=== PATIENT | female | born 1980 | race Caucasian/White ===

== ENCOUNTER 2018-03-01 18:59 | Emergency (ER) | payer OTHER, MEDICAID ==
[~2018-03-01] VITALS: Ht 170.2 cm; Wt 64.6 kg
[~2018-03-01 18:59] MED LIST: ADDERALL 30 MG30 MG PO; ALPRAZOLAM PO; AMITRIPTYLINE H25 M2 PO; AMOXICILLIN500 M1 PO; AZITHROMYCIN 2250 MG PO; CEPHALEXIN 500500 M3 PO; CLONAZEPAM 1 MG1 M1 PO; EFFEXOR 5050 MG/1 T1 PO; EFFEXOR XR37.5 MG PO; IBUPROFEN 800800 M1 PO; IBUPROFEN 800800 MG PO; KEFLEX250 MG PO; KLONOPIN2 MG PO; MACROBID 100 M100 M1 PO; MOBIC7.5 M1 PO; NORCO 5-325 TA1 EACH PO; ONDANSETRON HCL4 M2 PO; OXYCODON-ACETA1 EAC1 PO; OXYCONTIN20 M1 PO; PERCOCET 5-3251 EACH PO; PERCOCET 7.5-31 EACH PO; PREDNISONE 20 M20 M1 PO; PREDNISONE 20 M20 MG PO; PREDNISONE50 MG PO; PROMETHAZINE-D120 ML PO; REMERON30 MG; ROBAXIN 750 MG750 MG PO; SEROQUEL 25 MG25 M1 PO; SUBOXONE 8 MG-1 EAC3 SL; VENTOLIN HFA INH8 GM IH; XANAX 0.5 MG0.5 MG PO; XANAX 1 MG TABLE1 MG PO; [UNRECOGNIZED DRUG - OTHER] PO
[2018-03-01 19:55] VITALS: BP 148/62
== END 2018-03-01 19:59 | disposition home or self-care (01) ==
LOC: M.ERS 18:59
DX: F41.9 Anxiety disorder, unspecified (principal); F15.90 Other stimulant use, unspecified, uncomplicated; F90.9 Attention-deficit hyperactivity disorder, unspecified type; F31.9 Bipolar disorder, unspecified; F17.210 Nicotine dependence, cigarettes, uncomplicated

== ENCOUNTER 2018-07-12 12:20 | Emergency (ER) | payer OTHER ==
[~2018-07-12] VITALS: Ht 170.2 cm; Wt 56.7 kg
[2018-07-12] MEDS ORDERED: REMERON15 MG PO (12:36)
[2018-07-12] MEDS ORDERED: MINIPRESS1 MG PO (12:36)
[2018-07-12] MEDS ORDERED: SUBOXONE 12 MG1 EACH SL (12:38)
[2018-07-12 13:06] VITALS: BP 131/88
== END 2018-07-12 13:07 | disposition home or self-care (01) ==
LOC: M.ERS 12:20
DX: S01.81XA Laceration without foreign body of other part of head, initial encounter (principal); F17.210 Nicotine dependence, cigarettes, uncomplicated; M19.90 Unspecified osteoarthritis, unspecified site; F90.9 Attention-deficit hyperactivity disorder, unspecified type; F41.9 Anxiety disorder, unspecified; F31.9 Bipolar disorder, unspecified; Z90.49 Acquired absence of other specified parts of digestive tract; W18.39XA Other fall on same level, initial encounter; Y92.89 Other specified places as the place of occurrence of the external cause; Y93.89 Activity, other specified; Y99.8 Other external cause status

== ENCOUNTER 2018-08-02 10:17 | Emergency (ER) | payer OTHER ==
[~2018-08-02] VITALS: Ht 170.2 cm; Wt 59.0 kg
[~2018-08-02 10:17] MED LIST changes: +MINIPRESS1 MG PO; +REMERON15 MG PO; +SUBOXONE 12 MG1 EACH SL
[2018-08-02] MEDS ORDERED: TEGRETOL200 MG PO (10:28)
[2018-08-02] MEDS ORDERED: RISPERDAL2 MG PO (10:30)
[2018-08-02 10:58] LABS: ABSOLUTE LYMPHOCYTES 1.3 thou/uL (0.8-5.3); ABSOLUTE MONOCYTES 0.3 thou/uL (0.0-1.2); ABSOLUTE NEUTROPHILS 2.5 thou/uL (1.6-8.1); BASOPHILS 0.6 %; EOSINOPHILS 1.2 %; HEMATOCRIT 35.6 % (37.0-47.0); HEMOGLOBIN 11.9 gm/dL (12.0-15.0); LYMPHOCYTES 30.5 %; MCH 28.7 pg (26.0-34.0); MCHC 33.5 g/dL (28.0-37.0); MCV 85.5 fL (80.0-100.0); MONOCYTES 7.2 %; MPV 8.1 fl. (7.2-11.1); NUCLEATED RBCS 0 /100WBC; PLATELET COUNT* 166 thou/uL (150-400); POLYS 60.5 %; RBC 4.16 mil/uL (4.20-5.00); RDW-CV 14.7 % (10.5-14.5); WBC 4.2 thou/uL (4.0-11.0)
[2018-08-02 10:58] LABS: AMP/METHAMP Negative (Negative); BARBITURATES Negative (Negative); BENZODIAZEPINES POSITIVE (Negative); COCAINE Negative (Negative); METHADONE Negative (Negative); OPIATES Negative (Negative); PCP Negative (Negative); THC POSITIVE (Negative)
[2018-08-02 11:11] LABS: CALCIUM 8.7 mg/dL (8.5-10.1); CREATININE 0.7 mg/dL (0.6-1.3); POTASSIUM 3.7 mmol/L (3.5-5.1)
[2018-08-02 11:15] LABS: ALBUMIN 3.7 g/dL (3.4-5.0); SALICYLATE < 2.8 mg/dL (2.8-20.0); TOTAL BILIRUBIN 0.3 mg/dL (<0.1-1.0)
[2018-08-02 11:16] LABS: ACETAMINOPHEN < 2 ug/mL (10-30); ALCOHOL < 10 mg/dL (<10)
[2018-08-02] MEDS ORDERED: PREDNISONE 20 M20 M1 PO (11:31)
[2018-08-02] MEDS ORDERED: ATIVAN1 MG PO (15:43)
[2018-08-02 17:13] VITALS: BP 115/61
== END 2018-08-02 17:13 | disposition home or self-care (01) ==
LOC: M.ERS 10:17
PROVIDERS: Family Medicine
DX: F12.10 Cannabis abuse, uncomplicated (principal); F90.9 Attention-deficit hyperactivity disorder, unspecified type; F41.9 Anxiety disorder, unspecified; F31.9 Bipolar disorder, unspecified; F17.210 Nicotine dependence, cigarettes, uncomplicated; Z86.14 Personal history of Methicillin resistant Staphylococcus aureus infection; Z79.899 Other long term (current) drug therapy

== ENCOUNTER 2018-08-04 17:59 | Inpatient (IN) | payer OTHER ==
[~2018-08-04] VITALS: Ht 167.6 cm; Wt 64.9 kg
--- NOTE | ~2018-08-04 | CON ---
[address] [address] CONSULTATION Name: RODRIGO ARIAS Room: [address] ADM IN M.R.#: [id number] Admission: 08/04/18 Attend Phys: Leland Pepe MD Discharge: Date of : 78 Report #: [id number] THIS REPORT FOR: //name// CC: LIZZY physician/PCP Leland Pepe DATE OF SERVICE: 08/05/2018 HISTORY OF PRESENT ILLNESS: This is a 37-year-old female patient whose consultation was requested for seizures. This patient overdosed on doxepin. She is being managed by hospitalist for that, but neurology consultation was requested because the patient started having seizure. Apparently, she also had seizure in the Emergency Room, and they could not do the CT scan at that time. She was given Versed, and she was put on propofol, but seizure continued. I have not been able to reach the , but the nurses just talked to him, and apparently, she has some history of seizures. She takes Tegretol, but apparently that is because of seizures. I will continue to try to reach her. REVIEW OF SYSTEMS: Indicates drug overdose. She has a history of anxiety, a methamphetamine use. She had a prior . I do not know any further history in this regard, and we will try to contact the patient's . 14-point review of systems was carried out, and it looks like the patient has MRSA, bipolar disorder, posttraumatic stress disorder, anxiety, ADHD, gallbladder removal, HPV, degenerative disk disease, kidney infection that required hospitalization. This was the relevant 14-point review of system I can get. PAST MEDICAL HISTORY: Positive for multiple psychiatric problems. FAMILY HISTORY: Unavailable. SOCIAL HISTORY: She smokes as well as drinks alcohol, but it is not clear how much. The patient's alcohol level here was less than 10. PHYSICAL EXAMINATION: Indicates that the patient is sedated and pupils are small and difficult to tell about reaction. I cannot tell about movement because she is all sedated. She is intubated. Her vital signs are reasonably stable with a blood pressure 120/81 and pulse is 84. LABORATORY DATA: Indicates a normal white count and I got the Tegretol level done and that was also unremarkable. She did not overdose on that. They could not do a CT because she is considered too unstable to go for CT. IMPRESSION: 1. Drug overdose. 2. Seizures secondary to that. That was controlled [place] [address] CONSULTATION Name: RODRIGO ARIAS Room: [address]#: [id number] Admission: 08/04/18 Attend Phys: Leland Pepe MD Discharge: Date of : 78 Report #: [id number] propofol. She has not had any further seizures. RECOMMENDATIONS: We will continue to reach the patient's . Until she has a well-defined history of epilepsy, I will control the seizure with a benzodiazepine. We did get an EEG done last night that did not show any active epileptiform activity. The patient is critically ill at the moment, and we will continue to watch this patient closely. By: 0815 [id number] Cerrato MD /nt
--- NOTE | ~2018-08-04 | EEG ---
[address] [address] EEG STUDY REPORT Name: RASHIDAERIBERTOYahairaRODRIGO AKUA Room: [address] IN .R.#: [id number] Admission: 08/04/18 Attend Phys: Leland Pepe MD Discharge: Date of : 78 Report #: [id number] THIS REPORT FOR: //name// CC: [facility] physician/PCP Leland Pepe DATE OF SERVICE: 08/06/2018 This patient's EEG is being evaluated for history of seizures. The background activity in this patient's EEG is about 8-9 Hz and 30-40 microvolt. Photic stimulation is unremarkable. The patient is sedated and therefore is not possible to tell when she is awake and when she is asleep. No active epileptiform activity was noticed. IMPRESSION: This patient's EEG is abnormal because it is poorly formed. That may be because of sedation or encephalopathy. No active epileptiform activity was noticed. Clinical correlation is recommended. By: 0827 1013Pvenancio Cerrato MD /nt
--- NOTE | ~2018-08-04 | EEG ---
[address] [address] EEG STUDY REPORT Name: RASHIDAERIBERTOYahairaRODRIGO AKUA Room: [address] IN M.R.#: [id number] Admission: 08/04/18 Attend Phys: Leland Pepe MD Discharge: Date of : 79 Report #: [id number] THIS REPORT FOR: //name// CC: [facility] physician/PCP Leland Pepe DATE OF SERVICE: 08/04/2018 This patient is having seizures after tricyclic overdose. TECHNIQUE: EEG was done by placing the electrode by standard 10-20 system of electrode placement. Both referential and sequential montages were used for recording. Background activity in this patient's EEG is about 8-9 Hz and 30 microvolt. The patient is sedated on propofol. Photic stimulation is unremarkable. No active epileptiform activity was noticed during this record. IMPRESSION: This patient's EEG does not demonstrate any clear-cut epileptiform activity. It is slow on both sides. That is a nonspecific abnormality which can occur with effect of psychotropic medications, dementia and encephalopathy. Clinical correlation is recommended. By: 0918 1005Jason Cerrato MD /nt
[2018-08-04 17:59] VITALS: BP 105/75
[~2018-08-04 17:59] MED LIST changes: +ATIVAN1 MG PO; +RISPERDAL2 MG PO; +TEGRETOL200 MG PO
[2018-08-04 18:26] LABS: ABSOLUTE BASOPHILS 0.1 thou/uL (0.0-0.2); ABSOLUTE EOSINOPHILS 0.2 thou/uL (0.0-0.7); ABSOLUTE LYMPHOCYTES 1.8 thou/uL (0.8-5.3); ABSOLUTE MONOCYTES 0.3 thou/uL (0.0-1.2); ABSOLUTE NEUTROPHILS 4.6 thou/uL (1.6-8.1); EOSINOPHILS 2.8 %; HEMATOCRIT 39.2 % (37.0-47.0); LYMPHOCYTES 26.3 %; MCH 28.3 pg (26.0-34.0); MCHC 33.1 g/dL (28.0-37.0); MCV 85.6 fL (80.0-100.0); MONOCYTES 4.4 %; MPV 8.7 fl. (7.2-11.1); NUCLEATED RBCS 0 /100WBC; PLATELET COUNT* 198 thou/uL (150-400); POLYS 65.5 %; RBC 4.58 mil/uL (4.20-5.00); RDW-CV 14.6 % (10.5-14.5)
[2018-08-04 18:27] LABS: BE -0.9 mmol/L (-2 to +3); HCO3 22.2 mmol/L (22.0-26.0); PCO2 32.2 mmHg (35.0-45.0); pH 7.457 (7.340-7.450)
[2018-08-04 18:30] LABS: PO2 > 488.8 mmHg (75.0-100.0)
[2018-08-04 18:36] LABS: ANION GAP 7 mmol/L (7-16); BUN 16 mg/dL (7-18); CALCIUM 9.6 mg/dL (8.5-10.1); CHLORIDE 101 mmol/L (98-107); CO2 30 mmol/L (21-32); CREATININE 0.8 mg/dL (0.6-1.3); GLUCOSE 97 mg/dL (70-99); POTASSIUM 3.6 mmol/L (3.5-5.1); SODIUM 138 mmol/L (136-145)
[2018-08-04 18:38] LABS: APTT 24.5 Seconds (25.0-31.3); PROTIME 10.3 Seconds (9.20-11.50)
[2018-08-04 18:43] LABS: SALICYLATE < 2.8 mg/dL (2.8-20.0)
[2018-08-04 18:44] LABS: ACETAMINOPHEN < 2 ug/mL (10-30); ALCOHOL < 10 mg/dL (<10)
[2018-08-04 18:45] LABS: AMP/METHAMP Negative (Negative); BARBITURATES Negative (Negative); BENZODIAZEPINES Negative (Negative); COCAINE Negative (Negative); METHADONE Negative (Negative); OPIATES Negative (Negative); PCP Negative (Negative); THC Negative (Negative)
[2018-08-04 18:49] LABS: ALBUMIN 3.8 g/dL (3.4-5.0); ALKALINE PHOSPHATASE 54 U/L (46-116); NT-PRO BRAIN NAT PEPTIDE 36 pg/mL (<300); SGOT 52 U/L (15-37); SGPT 29 U/L (30-65); TOTAL BILIRUBIN 0.2 mg/dL (<0.1-1.0); TOTAL PROTEIN 7.4 g/dL (6.4-8.2); TROPONIN-I LEVEL <0.06 ng/mL (<0.06)
[2018-08-04 20:17] VITALS: BP 133/92
[2018-08-04 22:00] VITALS: BP 136/92
[2018-08-05] VITALS (19 sets, daily range): BP systolic 104–139; BP diastolic 65–99
[2018-08-05 06:14] LABS: BE 2.7 mmol/L (-2 to +3); HCO3 26.2 mmol/L (22.0-26.0); PCO2 36.8 mmHg (35.0-45.0); pH 7.471 (7.340-7.450)
[2018-08-05 06:17] LABS: PO2 146.5 mmHg (75.0-100.0)
--- NOTE | 2018-08-05 11:05 | CON ---
[address] [address] CONSULTATION Name: AMARIYahairaRODRIGO AKUA Room: [address] ADM IN M.R.#: [id number] Admission: 08/04/18 Attend Phys: Leland Pepe MD Discharge: Date of : 79 Report #: [id number] THIS REPORT FOR: //name// CC: [facility] physician/PCP Leland Pepe DATE OF SERVICE: 08/05/2018 REQUESTING PHYSICIAN: Dr. Pepe. REASON FOR CONSULTATION: Respiratory failure, status post drug overdose, on ventilator with seizures. DISCUSSION: This is a 37-year-old woman who was brought into the Emergency Department yesterday via EMS. They had been called as she apparently had ingested a large amount of doxepin. According to the ED notes, took about 45 tablets of this, they were 100 mg dosage. Was initially incoherent. While she was in the Emergency Department, mental status began to deteriorate. Was not overly cooperative. She subsequently was intubated. Central line was also placed. Poison Control was contacted by the Emergency Department. She has been getting periodic EKGs. Bicarb drip was also started. Had issues with seizures, apparently already has an underlying history of those. Dr. Cerrato was contacted. She is on a propofol and a Versed drip. She has not required any additional p.r.n. medications. She has not had any further seizure activity. She has been hemodynamically stable otherwise. Initially was mildly tachycardic. That has improved, she is now in the 80s. She has had a good blood pressure. She has been oxygenating well. She is sedated as noted above. Apparently, she does have a history of substance abuse. She has had a prior tonsillectomy. She has had multiple ED visits, in fact was here several days prior to this event. Apparently, was confused. Had thought she was being drugged with cocaine. Drug screen, however, subsequently was negative. Does have a past history of methamphetamine use, does use marijuana. She has had issues with headaches, posttraumatic stress syndrome, prior cholecystectomy, prior kidney infections. When she was in the Emergency Department several days ago, her home medications listed at that time were Minipress, Suboxone and Tegretol. They did give her a script for Xanax. SOCIAL HISTORY: Reportedly is . Has children. Tobacco user, not clear how much. FAMILY HISTORY: Unable to obtain from the patient. REVIEW OF SYSTEMS: Unable to [place] [address] CONSULTATION Name: RODRIGO ARIAS Room: [address] IN [facility]#: [id number] Admission: 08/04/18 Attend Phys: Leland Pepe MD Discharge: Date of : 79 Report #: [id number] PHYSICAL EXAMINATION: GENERAL APPEARANCE: A woman, does look older than stated age. Does look chronically ill, she is thin. Currently sedated on the ventilator, also has an orogastric tube in place. HEENT: Head is normocephalic. Sclerae nonicteric. Mucous membranes are a little dry. NECK: Negative for adenopathy. Does have an IJ line in place. HEART: Regular in the mid 80s. No gallop or S3 is heard. LUNGS: Sounds are clear with good air exchange. No wheezing or crackles are heard. Excursion is equal. No subcutaneous emphysema. ABDOMEN: Soft, without appreciable hepatosplenomegaly noted. Valenzuela catheter in place. EXTREMITIES: Thin. She has no edema. No clubbing. SKIN: Warm and dry. She does have multiple areas noted on her arms, legs as well as her abdomen. They are from "bites" or from "picking." LABORATORY AND X-RAY FINDINGS: Most recent arterial blood gas, which was on 6:00 this morning, she had a pH of 7.47, pCO2 of 37, pO2 of 147, bicarbonate 26 with a saturation of 98%. She is on the ventilator, rate of 14, tidal volume of 550, PEEP of 5, FiO2 of 35%. On her chemistry done yesterday evening, potassium is 3.6, bicarbonate of 30, BUN is 16, creatinine of 0.8. AST 52, total bilirubin 0.2, total CPK 1243, lactic acid 1.4, albumin 3.8. Coag studies unremarkable. Drug screen was positive for benzodiazepines and THC. White blood cell count 7000, hemoglobin 13.0, hematocrit 39.2, platelets 198,000. Blood cultures were sent. Chest x-ray was reviewed. Had study yesterday as well as another one done this morning. Endotracheal tube is in position. Enteral tube is in her stomach. No infiltrates are noted. IMPRESSION: 1. Acute respiratory failure, intubated due to alterations in mental status and seizures. Oxygenating well. 2. Status post drug overdose with doxepin. 3. History of tobacco and substance abuse, exact details not clear. 4. Seizures, reportedly has a history of seizures baseline. Overdose will certainly exacerbate that. RECOMMENDATIONS: 1. Given the large volume of medications that she ingested, we will maintain ventilatory support and sedation today. 2. Follow up blood gases later today. Continue with bicarbonate drip at this time. Vent adjustments as needed. 3. Continue DuoNeb every 4 hours. 4. If she is stable tomorrow, may be able to work on weaning from the ventilator. 5. Follow up [place]KGs[place] [address] CONSULTATION Name: RODRIGO ARIAS Room: [address] ADM IN M.R.#: [id number] Admission: 08/04/18 Attend Phys: Leland Pepe MD Discharge: Date of : 78 Report #: [id number] 6. Neurology will also be involved given her seizures. 7. Psychiatric input once she is able to be successfully extubated. <ELECTRONICALLY SIGNED> By: Shelley Samano MD 08/05/18 1105 0812 1102Shelley Samano MD /nt
[2018-08-05] MEDS ORDERED: RISPERDAL2 MG PO (12:06)
[2018-08-05] MEDS ORDERED: PRAZOSIN 1 MG CA1 M1 PO (12:07)
[2018-08-05] MEDS ORDERED: REMERON15 MG PO (12:08)
[2018-08-05] MEDS ORDERED: WELLBUTRIN XL300 MG PO (12:09)
[2018-08-05] MEDS ORDERED: DOXEPIN HCL150 MG PO (12:17)
--- NOTE | 2018-08-05 12:17 | EKG ---
[place] [address] ELECTROCARDIOGRAM REPORT Name: RODRIGO ARIAS Room: [address] ADM IN M.R.#: [id number] Admission: 08/04/18 Attend Phys: Leland Pepe MD Discharge: Date of : 79 Report #: [id number] THIS REPORT FOR: //name// [facility] Test Date: 2018-08-05 Test Time: 00:19:45 Pat Name: RODRIGO RASHIDAERIBERTOYahaira Department: Room: [address] Gender: F Edge Bonder: MILLER REYNA : 1980 Requested By: Leland Pepe Order Number: [id number] Reading MD: Alexis Edwards Measurements Intervals [place] Rate: 89 P: -47 OR: 235 QRS: 28 QRSD: 123 T: 76 QT: 416 QTc: 507 Interpretive Statements Sinus or ectopic atrial rhythm Prolonged OR interval Left bundle branch block Compared to ECG 12/20/2014 17:23:41 Ectopic atrial rhythm now present First degree AV block now present Left bundle-branch block now present Sinus tachycardia no longer present Electronically Signed On 08-05-2018 12:17:29 TOOL GRINDER OPERATOR by Alexis Edwards [email or web address] <ELECTRONICALLY SIGNED> By: Alexis Edwards MD, FACC 08/05/18 1217 0019 0019 Alexis Edwards MD, FACC /EPI
--- NOTE | 2018-08-05 12:17 | EKG ---
[place] [address] ELECTROCARDIOGRAM REPORT Name: RODRIGO ARIAS Room: [address] ADM IN M.R.#: [id number] Admission: 08/04/18 Attend Phys: Leland Pepe MD Discharge: Date of : 78 Report #: [id number] THIS REPORT FOR: //name// [facility] ED Test Date: 2018-08-04 Test Time: 19:00:44 Pat Name: RODRIGO ARIAS Department: Room: [facility] Gender: F Music Video Producer: Albertina DIMAS : 1980 Requested By: Oli Dominguez Order Number: [id number] MD: Alexis Edwards Measurements Intervals [place] Rate: 101 P: 92 AL: 267 QRS: 64 QRSD: 137 T: 69 QT: 336 QTc: 436 Interpretive Statements Sinus tachycardia Prolonged AL interval Probable left atrial enlargement IVCD, consider atypical LBBB Compared to ECG 12/20/2014 17:23:41 First degree AV block now present Electronically Signed On 08-05-2018 12:16:54 MOSAIC TILER by Alexis Edwards [email or web address] <ELECTRONICALLY SIGNED> By: Alexis Edwards MD, FACC 08/05/18 1216 190 99 Alexis Edwards MD, FAC /EPI
--- NOTE | 2018-08-05 12:17 | EKG ---
[place] [address] ELECTROCARDIOGRAM REPORT Name: RODRIGO ARIAS Room: [address] ADM IN M.R.#: [id number] Admission: 08/04/18 Attend Phys: Leland Pepe MD Discharge: Date of : 78 Report #: [id number] THIS REPORT FOR: //name// [facility] Test Date: 2018-08-05 Test Time: 00:09:54 Pat Name: RODRIGO RASHIDAERIBERTOYahaira Department: Room: [address] Gender: F Political Science Professor: MILLER REYNA : 1980 Requested By: Leland Pepe Order Number: [id number] Reading MD: Alexis Edwards Measurements Intervals [place] Rate: 89 P: -39 SC: 234 QRS: 35 QRSD: 120 T: 68 QT: 411 QTc: 501 Interpretive Statements Sinus rhythm Prolonged SC interval Anterior infarct, acute (LAD) Compared to ECG 12/20/2014 17:23:41 First degree AV block now present Myocardial infarct finding now present Sinus tachycardia no longer present Electronically Signed On 08-05-2018 12:17:23 CERTIFIED NEURODIAGNOSTIC TECHNOLOGIST by Alexis Edwards [email or web address] <ELECTRONICALLY SIGNED> By: Alexis Edwards MD, FAC 08/05/18 1217 0009 0009 Alexis Edwards MD, FAC /EPI
[2018-08-05 15:40] LABS: BE 0.3 mmol/L (-2 to +3); HCO3 24.1 mmol/L (22.0-26.0); pH 7.444 (7.340-7.450)
[2018-08-05 15:50] LABS: PO2 151.3 mmHg (75.0-100.0)
[2018-08-06] VITALS (19 sets, daily range): BP systolic 100–135; BP diastolic 68–99
[2018-08-06 04:25] LABS: BE -0.4 mmol/L (-2 to +3); PCO2 29.2 mmHg (35.0-45.0); pH 7.495 (7.340-7.450)
[2018-08-06 04:27] LABS: PO2 158.9 mmHg (75.0-100.0)
[2018-08-06 04:54] LABS: HEMATOCRIT 26.9 % (37.0-47.0); MCH 30.8 pg (26.0-34.0); MCHC 32.9 g/dL (28.0-37.0); NUCLEATED RBCS 0 /100WBC; PLATELET COUNT* 169 thou/uL (150-400); RBC 2.87 mil/uL (4.20-5.00); RDW-CV 16.4 % (10.5-14.5); WBC 9.9 thou/uL (4.0-11.0)
[2018-08-06 05:07] LABS: HEMOGLOBIN 8.8 gm/dL (12.0-15.0); MCV 93.5 fL (80.0-100.0)
[2018-08-06 06:39] LABS: ABSOLUTE EOSINOPHILS 0.1 thou/uL (0.0-0.7); ABSOLUTE LYMPHOCYTES 2.4 thou/uL (0.8-5.3); ABSOLUTE MONOCYTES 0.7 thou/uL (0.0-1.2); ABSOLUTE NEUTROPHILS 6.7 thou/uL (1.6-8.1); ANISOCYTOSIS 1+; PLATELET ESTIMATE ADEQUATE; POIKILOCYTOSIS 1+
[2018-08-07] VITALS (24 sets, daily range): BP systolic 108–136; BP diastolic 66–91
[2018-08-07 04:31] LABS: ABSOLUTE EOSINOPHILS 0.2 thou/uL (0.0-0.7); ABSOLUTE LYMPHOCYTES 1.2 thou/uL (0.8-5.3); ABSOLUTE MONOCYTES 0.4 thou/uL (0.0-1.2); ABSOLUTE NEUTROPHILS 4.5 thou/uL (1.6-8.1); BASOPHILS 0.6 %; EOSINOPHILS 3.2 %; HEMATOCRIT 31.5 % (37.0-47.0); HEMOGLOBIN 10.5 gm/dL (12.0-15.0); LYMPHOCYTES 19.3 %; MCHC 33.3 g/dL (28.0-37.0); MPV 8.7 fl. (7.2-11.1); NUCLEATED RBCS 0 /100WBC; PLATELET COUNT* 133 thou/uL (150-400); POLYS 70.9 %; RBC 3.61 mil/uL (4.20-5.00); RDW-CV 15.2 % (10.5-14.5); WBC 6.3 thou/uL (4.0-11.0)
[2018-08-07 05:03] LABS: ALBUMIN 2.5 g/dL (3.4-5.0); CALCIUM 8.1 mg/dL (8.5-10.1); CREATININE 0.6 mg/dL (0.6-1.3); POTASSIUM 3.8 mmol/L (3.5-5.1); TOTAL BILIRUBIN 0.1 mg/dL (<0.1-1.0); TOTAL PROTEIN 5.4 g/dL (6.4-8.2)
[2018-08-07 09:04] LABS: BE -0.6 mmol/L (-2 to +3); HCO3 23.4 mmol/L (22.0-26.0); PCO2 36.4 mmHg (35.0-45.0); pH 7.426 (7.340-7.450)
[2018-08-07 09:05] LABS: PO2 145.2 mmHg (75.0-100.0)
[2018-08-08] VITALS (18 sets, daily range): BP systolic 105–139; BP diastolic 68–103
[2018-08-08 04:36] LABS: ABSOLUTE EOSINOPHILS 0.1 thou/uL (0.0-0.7); ABSOLUTE LYMPHOCYTES 1.3 thou/uL (0.8-5.3); ABSOLUTE MONOCYTES 0.4 thou/uL (0.0-1.2); BASOPHILS 0.2 %; EOSINOPHILS 1.5 %; HEMATOCRIT 28.9 % (37.0-47.0); HEMOGLOBIN 9.6 gm/dL (12.0-15.0); LYMPHOCYTES 22.7 %; MCHC 33.3 g/dL (28.0-37.0); MCV 87.3 fL (80.0-100.0); MONOCYTES 7.6 %; MPV 9.1 fl. (7.2-11.1); NUCLEATED RBCS 0 /100WBC; PLATELET COUNT* 112 thou/uL (150-400); RBC 3.31 mil/uL (4.20-5.00); RDW-CV 14.5 % (10.5-14.5); WBC 5.9 thou/uL (4.0-11.0)
[2018-08-08 04:49] LABS: PREALBUMIN 18.3 mg/dL (18.0-35.7)
[2018-08-08 04:50] LABS: ALBUMIN 2.6 g/dL (3.4-5.0); CALCIUM 7.7 mg/dL (8.5-10.1); CREATININE 0.6 mg/dL (0.6-1.3); POTASSIUM 3.2 mmol/L (3.5-5.1); TOTAL BILIRUBIN 0.3 mg/dL (<0.1-1.0); TOTAL PROTEIN 5.5 g/dL (6.4-8.2)
[2018-08-09] VITALS (23 sets, daily range): BP systolic 105–139; BP diastolic 65–93
[2018-08-10] VITALS (8 sets, daily range): BP systolic 97–124; BP diastolic 66–88
[2018-08-10 04:42] LABS: HEMOGLOBIN 9.9 gm/dL (12.0-15.0); MCV 86.2 fL (80.0-100.0)
[2018-08-10 04:44] LABS: ABSOLUTE EOSINOPHILS 0.3 thou/uL (0.0-0.7); ABSOLUTE LYMPHOCYTES 1.2 thou/uL (0.8-5.3); ABSOLUTE MONOCYTES 0.3 thou/uL (0.0-1.2); ABSOLUTE NEUTROPHILS 2.9 thou/uL (1.6-8.1); BASOPHILS 0.4 %; HEMATOCRIT 29.9 % (37.0-47.0); LYMPHOCYTES 24.8 %; MCH 28.6 pg (26.0-34.0); MCHC 33.2 g/dL (28.0-37.0); MONOCYTES 6.6 %; MPV 8.6 fl. (7.2-11.1); NUCLEATED RBCS 0 /100WBC; PLATELET COUNT* 145 thou/uL (150-400); POLYS 62.2 %; RBC 3.47 mil/uL (4.20-5.00); RDW-CV 14.6 % (10.5-14.5); WBC 4.7 thou/uL (4.0-11.0)
[2018-08-10 04:55] LABS: ALBUMIN 2.5 g/dL (3.4-5.0); CALCIUM 8.3 mg/dL (8.5-10.1); CREATININE 0.6 mg/dL (0.6-1.3); POTASSIUM 3.6 mmol/L (3.5-5.1); TOTAL BILIRUBIN 0.1 mg/dL (<0.1-1.0); TOTAL PROTEIN 5.6 g/dL (6.4-8.2)
[2018-08-10] MEDS ORDERED: KEPPRA 500 MG500 M1 PO (18:03)
[2018-08-10] MEDS ORDERED: SEROQUEL 50 MG50 MG PO (18:04)
[2018-08-10] MEDS ORDERED: SEROQUEL 25 MG25 M1 PO (18:05)
== END 2018-08-10 19:55 | DRG 917 ==
LOC: M.ERS 17:59 → M.TBA-ER 18:39 → M.ICU 18:39 → M.ORTHSURG 08-10 10:38
PROVIDERS: Family Medicine; Internal Medicine; Internal Medicine Pulmonary Disease
PROC: 5A1945Z Respiratory Ventilation, 24-96 Consecutive Hours (ICD-10-PCS; principal; 2018-08-04)
PROC: 0BH17EZ Insertion of Endotracheal Airway into Trachea, Via Natural or Artificial Opening (ICD-10-PCS; principal; 2018-08-04)
PROC: 02HV33Z Insertion of Infusion Device into Superior Vena Cava, Percutaneous Approach (ICD-10-PCS; principal; 2018-08-04)
DX: T43.012A Poisoning by tricyclic antidepressants, intentional self-harm, initial encounter (principal); J96.01 Acute respiratory failure with hypoxia; G92 Toxic encephalopathy; G40.909 Epilepsy, unspecified, not intractable, without status epilepticus; F90.9 Attention-deficit hyperactivity disorder, unspecified type; F41.9 Anxiety disorder, unspecified; F43.10 Post-traumatic stress disorder, unspecified; F31.9 Bipolar disorder, unspecified; F17.210 Nicotine dependence, cigarettes, uncomplicated; F12.10 Cannabis abuse, uncomplicated; Z86.14 Personal history of Methicillin resistant Staphylococcus aureus infection; Y92.89 Other specified places as the place of occurrence of the external cause; Z78.1 Physical restraint status; Z91.14 Patient's other noncompliance with medication regimen; Z90.49 Acquired absence of other specified parts of digestive tract; Z79.899 Other long term (current) drug therapy

== ENCOUNTER 2020-01-20 19:16 | Emergency (ER) | payer MEDICAID ==
[~2020-01-20] VITALS: Ht 170.2 cm; Wt 58.1 kg
[~2020-01-20 19:16] MED LIST changes: +DOXEPIN HCL150 MG PO; +KEPPRA 500 MG500 M1 PO; +PRAZOSIN 1 MG CA1 M1 PO; +SEROQUEL 50 MG50 MG PO; +WELLBUTRIN XL300 MG PO
[2020-01-20] MEDS ORDERED: CYMBALTA20 MG PO (19:29)
[2020-01-20] MEDS ORDERED: CLONAZEPAM 0.50.5 M1 PO (19:29)
[2020-01-20] MEDS ORDERED: ANTI-ITCH28 G1 TOP (19:43)
[2020-01-20] MEDS ORDERED: PREDNISONE 10 M10 MG PO (19:43)
[2020-01-20 20:33] VITALS: BP 133/79
== END 2020-01-20 20:34 | disposition home or self-care (01) ==
LOC: M.ERS 19:16
DX: L25.9 Unspecified contact dermatitis, unspecified cause (principal); F17.210 Nicotine dependence, cigarettes, uncomplicated; Z86.14 Personal history of Methicillin resistant Staphylococcus aureus infection; Z87.898 Personal history of other specified conditions

== ENCOUNTER 2020-04-27 18:08 | Inpatient (IN) | payer MEDICAID ==
[~2020-04-27] VITALS: Ht 170.2 cm; Wt 58.1 kg
--- NOTE | ~2020-04-27 | CON ---
[address] [address] CONSULTATION Name: AMARIYahairaRODRIGO AKUA Room: [place] [address] ADM IN M.R.#: [id number] Admission: 04/27/20 Attend Phys: Adrian Guerrero MD Discharge: Date of : 79 Report #: [id number] THIS REPORT FOR: //name// cc: LIZZY Garces family physician/PCP LIZZY Garces family physician/PCP ~ THIS REPORT FOR: //name// CC: Adrian BALL physician/PCP DATE OF SERVICE: 04/28/2020 CONSULT REQUESTED BY: Adrian Guerrero MD. INDICATION FOR CONSULTATION: Acute hypercarbic respiratory failure. HISTORY OF PRESENT ILLNESS: This is a 39-year-old female. She has an extensive history of smoking, also does have a history of polysubstance abuse. The patient previously was admitted with drug overdosage and was in respiratory failure, also had seizures, was on the ventilator, that was back in 2018. The patient is not on supplemental oxygen at home. This time, the patient is admitted with a cardiac arrest, is reported to have briefly received CPR. The patient initially is reported to have taken a medication that she thought was Valium from another person. The patient is also reported to have had seizures initially. She did test positive for opiates, in addition to amphetamines, benzodiazepines and marijuana on initial presentation. I am told that the patient initially was hypotensive, in fact also was on pressors, has been fluid resuscitated, was on a BiPAP. Arterial blood gases do show elevation in pCO2 initially up to 60 with a pH of 7.25. The patient subsequently has stabilized. Currently, she is on 2 liters nasal cannula. She is drowsy, but fully arousable. She has various pain complaints including the right leg as well as shoulders and chest with respiration and coughing. The patient does state that she is short of breath. She also reports that she had hemoptysis earlier. She also states that she has a sore throat. Blood pressure has been variable, last recorded at 97/52; however, she does not appear to be in shock any longer. At this time, it appears to be well perfused. The patient currently is afebrile, had a low-grade elevation in temperature to 37.3 overnight. REVIEW OF SYSTEMS: The patient provided only limited review of systems. The patient's review of systems, however, is negative except as mentioned above, I did ask her 12 questions for review of systems. PAST MEDICAL HISTORY: Previous admission to this hospital in 2018 with acute respiratory failure and drug overdosage with doxepin. The patient also had seizures at that time. Degenerative joint disease, gallbladder surgery, ADHD, anxiety, posttraumatic stress disorder, bipolar disorder, MRSA skin infection, [place] [address] CONSULTATION Name: RODRIGO ARIAS Room: [address] [facility]#: [id number] Admission: 04/27/20 Attend Phys: Adrian Guerrero MD Discharge: Date of : 78 Report #: [id number] seizures, UTI requiring hospitalization, human papillomavirus infection requiring cone procedure. I do not have a measure of her left ventricular ejection fraction available at this time. SOCIAL HISTORY: The patient has an extensive history of smoking. She says that she still smokes. She did not quantify the amount of cigarettes she smokes. Also, has a history of polysubstance abuse as mentioned above. She says that she drinks about 2 beers a day. CURRENT MEDICATIONS: The list in [facility] reviewed. HOME MEDICATIONS: The list in [facility] is reviewed. I am not certain as to whether we have the entire list from home. ALLERGIES: VICODIN IS MENTIONED AN ALLERGY. FAMILY HISTORY: There is no pertinent family history. PHYSICAL EXAMINATION: GENERAL: The patient has poor eye contact. She provides a limited history. She closes her eyes during examination, however, she may still be fully awake. She is still able to answer questions adequately. VITAL SIGNS: She a pulse of 79 and a blood pressure of 79/52. She is saturating 98%, she is on 2 liters nasal cannula, respiratory rate is 20 and mildly elevated with a temperature of 36.6. HEENT: Head is normocephalic and atraumatic. NECK: Does not show raised JVP, asymmetry, mass or lymph nodes. CHEST: Symmetrical expansion on inspection and palpation. On auscultation, there are occasional rales at the left lung base. Expirations are prolonged. I do not hear any added sounds. HEART: Regular. There is no murmur. ABDOMEN: Soft and nontender. EXTREMITIES: Lower extremities show no edema. There is no calf tenderness. The patient complains of tenderness in the right calf. LABORATORY DATA: The patient's chest x-rays were reviewed. There are extensive infiltrates in the left lung. There is a central line in place. The patient's CBC as well as chemistries are in [facility] and these are reviewed from last night. Arterial blood gases in [facility] reviewed. I just ordered coagulation studies, these are pending. Toxicology screen is positive for multiple agents as above. The urinalysis is in [facility] and this is also reviewed. ASSESSMENT AND PLAN: 1. Acute hypercarbic respiratory failure. It is possible there is a chronic component as well. At this time, we will keep the patient on BiPAP while asleep. Titrate oxygen. [facility] [address] [place] [address] CONSULTATION Name: RODRIGO ARIAS Room: [place] [address] ADM IN .R.#: [id number] Admission: 04/27/20 Attend Phys: Adrian Guerrero MD Discharge: Date of : 79 Report #: [id number] 2. Pulmonary infiltrates. The patient has fairly extensive infiltrates in the left lung. The patient is on Zosyn. I agree with the same. I am inclined to broaden antibiotic coverage to include atypicals as well as methicillin-resistant Staphylococcus aureus. I am considering ordering doxycycline and therefore, I ordered a urine test, but the patient reports that she has had tubal ligation, which will make unlikely. Should the patient's condition worsen, I will have a low threshold of adding vancomycin. 3. Chronic obstructive pulmonary disease exacerbation. It does appear to me that there is underlying component of chronic obstructive pulmonary disease. Considering that the patient needs enhanced isolation for ruling out COVID-19, I only ordered Brovana b.i.d. as a nebulizer to limit exposure to staff. We will add additional nebulized medications if COVID-19 is negative. I ordered 3 doses of Solu-Medrol. We will reassess tomorrow with an arterial blood gas. 4. Drug overdosage. See discussion above. 5. Cardiac arrest. The patient did receive CPR and was unresponsive. As to whether she in fact had a cardiac arrest, is not fully clear. I do agree with obtaining an echocardiogram. Cardiology service is on the case. Troponin I only had mild elevation to 0.15. 6. Leg pain/hemoptysis. We need to evaluate for thromboembolism as well. I ordered venous Dopplers. I also ordered some labs now including D-dimer. We will review these and we will then evaluate for possibly ordering a CTA chest. 7. Hypotension. The patient's blood pressure still is on the lower side, however, she now appears to be well perfused. We will follow along and we will consider discontinuing IV fluids soon to avoid development of fluid overload if the patient's blood pressure remains in the normal range. 8. Past medical history of polysubstance abuse. 9. Past medical history of methicillin-resistant Staphylococcus aureus skin infections. 10. Past medical history of bipolar disorder. 11. Past medical history of seizures. Thanks for this consultation. By: 1245 [id number] Rivera MD /nt
[~2020-04-27 18:08] MED LIST changes: +ANTI-ITCH28 G1 TOP; +CLONAZEPAM 0.50.5 M1 PO; +CYMBALTA20 MG PO; +PREDNISONE 10 M10 MG PO
[2020-04-27 18:12] VITALS: BP 90/53
[2020-04-27] MEDS ORDERED: AMITRIPTYLINE H50 M2 PO (18:22)
[2020-04-27 18:39] LABS: ABSOLUTE EOSINOPHILS 0.1 thou/uL (0.0-0.7); ABSOLUTE LYMPHOCYTES 1.5 thou/uL (0.8-5.3); ABSOLUTE MONOCYTES 0.2 thou/uL (0.0-1.2); ABSOLUTE NEUTROPHILS 3.3 thou/uL (1.6-8.1); BASOPHILS 0.9 %; HEMATOCRIT 36.2 % (37.0-47.0); HEMOGLOBIN 12.2 gm/dL (12.0-15.0); LYMPHOCYTES 28.9 %; MCH 28.6 pg (26.0-34.0); MCHC 33.7 g/dL (28.0-37.0); MONOCYTES 4.4 %; MPV 9.7 fl. (7.2-11.1); NUCLEATED RBCS 0 /100WBC; PLATELET COUNT* 186 thou/uL (150-400); POLYS 64.8 %; RBC 4.26 mil/uL (4.20-5.00); RDW-CV 13.9 % (10.5-14.5); WBC 5.1 thou/uL (4.0-11.0)
[2020-04-27 18:45] LABS: CALCIUM 7.9 mg/dL (8.5-10.1); CREATININE 1.1 mg/dL (0.6-1.3); POTASSIUM 3.9 mmol/L (3.5-5.1)
[2020-04-27 18:55] LABS: ALBUMIN 3.4 g/dL (3.4-5.0); MAGNESIUM 1.9 mg/dL (1.8-2.4); TOTAL BILIRUBIN 0.3 mg/dL (<0.1-1.0); TOTAL PROTEIN 6.7 g/dL (6.4-8.2)
[2020-04-27 22:13] LABS: BE -2.1 mmol/L (-2 to +3); PO2 73.8 mmHg (75.0-100.0)
[2020-04-27 22:17] LABS: pH 7.254 (7.340-7.450)
[2020-04-27 22:18] LABS: PCO2 59.7 mmHg (35.0-45.0)
[2020-04-27 22:23] LABS: URINE BILIRUBIN NEGATIVE (Negative); URINE BLOOD NEGATIVE (Negative); URINE CLARITY CLEAR; URINE COLOR YELLOW; URINE GLUCOSE-RANDOM TRACE (Negative); URINE KETONES NEGATIVE (Negative); URINE LEUKOCYTES-REFLEX NEGATIVE (Negative); URINE NITRITE-REFLEX NEGATIVE (Negative); URINE PROTEIN 1+ (Negative); URINE SPECIFIC GRAVITY >= 1.030 (1.005-1.030); URINE UROBILINOGEN 0.2 E.U./dl (0.2-1.0)
[2020-04-27 22:37] LABS: AMP/METHAMP POSITIVE (Negative); BARBITURATES Negative (Negative); BENZODIAZEPINES POSITIVE (Negative); COCAINE Negative (Negative); METHADONE Negative (Negative); OPIATES POSITIVE (Negative); PCP Negative (Negative); THC POSITIVE (Negative)
[2020-04-27 23:46] VITALS: BP 92/50
[2020-04-28] VITALS (7 sets, daily range): BP systolic 79–187; BP diastolic 39–94
[2020-04-28 00:27] LABS: BE -4.8 mmol/L (-2 to +3); PO2 83.3 mmHg (75.0-100.0)
[2020-04-28 00:29] LABS: PCO2 53.5 mmHg (35.0-45.0); pH 7.249 (7.340-7.450)
[2020-04-28 04:11] LABS: HEMATOCRIT 32.9 % (37.0-47.0); HEMOGLOBIN 10.9 gm/dL (12.0-15.0); MCH 28.5 pg (26.0-34.0); MCHC 33.2 g/dL (28.0-37.0); MCV 85.8 fL (80.0-100.0); MPV 9.8 fl. (7.2-11.1); NUCLEATED RBCS 0 /100WBC; PLATELET COUNT* 139 thou/uL (150-400); RBC 3.83 mil/uL (4.20-5.00); WBC 12.8 thou/uL (4.0-11.0)
[2020-04-28 04:30] LABS: CALCIUM 7.5 mg/dL (8.5-10.1); CREATININE 0.7 mg/dL (0.6-1.3); POTASSIUM 3.7 mmol/L (3.5-5.1)
[2020-04-28 05:35] LABS: BE 0.2 mmol/L (-2 to +3); pH 7.304 (7.340-7.450)
[2020-04-28 05:36] LABS: PCO2 56.2 mmHg (35.0-45.0)
[2020-04-28 07:38] LABS: ABSOLUTE LYMPHOCYTES 0.8 thou/uL (0.8-5.3); ABSOLUTE MONOCYTES 0.9 thou/uL (0.0-1.2); ABSOLUTE NEUTROPHILS 11.1 thou/uL (1.6-8.1); PLATELET ESTIMATE ADEQUATE
[2020-04-28] MEDS ORDERED: ABILIFY 5 MG TAB5 M1 PO (11:10)
[2020-04-28] MEDS ORDERED: DIAZEPAM 10 MG10 M2 PO (11:11)
[2020-04-28] MEDS ORDERED: BUSPIRONE HCL7.5 MG PO (11:11)
[2020-04-28 12:49] LABS: ABSOLUTE EOSINOPHILS 0.1 thou/uL (0.0-0.7); ABSOLUTE LYMPHOCYTES 1.3 thou/uL (0.8-5.3); ABSOLUTE MONOCYTES 0.5 thou/uL (0.0-1.2); ABSOLUTE NEUTROPHILS 6.3 thou/uL (1.6-8.1); BASOPHILS 0.6 %; EOSINOPHILS 0.8 %; HEMATOCRIT 27.1 % (37.0-47.0); HEMOGLOBIN 9.2 gm/dL (12.0-15.0); MCH 28.8 pg (26.0-34.0); MCHC 33.8 g/dL (28.0-37.0); MCV 85.3 fL (80.0-100.0); MONOCYTES 5.5 %; MPV 9.4 fl. (7.2-11.1); NUCLEATED RBCS 0 /100WBC; PLATELET COUNT* 100 thou/uL (150-400); POLYS 77.1 %; RBC 3.17 mil/uL (4.20-5.00); RDW-CV 14.1 % (10.5-14.5); WBC 8.2 thou/uL (4.0-11.0)
[2020-04-28 12:55] LABS: POTASSIUM 3.4 mmol/L (3.5-5.1)
[2020-04-28 12:56] LABS: CALCIUM 7.2 mg/dL (8.5-10.1); CREATININE 0.7 mg/dL (0.6-1.3); MAGNESIUM 1.8 mg/dL (1.8-2.4)
[2020-04-28 13:00] LABS: APTT 26.7 Seconds (25.0-31.3); INR 1.2; PROTIME 12.2 Seconds (9.20-11.50)
--- NOTE | 2020-04-28 17:23 | EKG ---
[place] [address] ELECTROCARDIOGRAM REPORT Name: RODRIGO ARIAS Room: [place] [address] ADM IN .R.#: [id number] Admission: 04/27/20 Attend Phys: Adrain Guerrero, Discharge: Date of : 78 Date of Service: 04/27/20 183 Report #: [id number] THIS REPORT FOR: //name// [facility] ED Test Date: 2020-04-27 Test Time: 18:39:52 Pat Name: RODRIGO ARIAS Department: Room: [facility] Gender: F Assembler Product: ignacio : 1980 Requested By: Jae Small Order Number: [id number] MD: Brant Llanes Measurements Intervals [place] Rate: 100 P: 85 W[place]: 150 QRS: 83 QRSD: 75 T: 82 QT: 361 QTc: 466 Interpretive Statements Sinus tachycardia Compared to ECG 08/05/2018 00:19:45 Ectopic atrial rhythm no longer present First degree AV block no longer present Left bundle-branch block no longer present Electronically Signed On 04-28-2020 17:23:13 CDT by Brant Llanes [email or web address] <ELECTRONICALLY SIGNED> By: Brant Llanes MD, [facility] 04/28/20 1723 1839 1839 Brant Llanes MD, FAC /EPI
[2020-04-29 02:06] LABS: GLYCOHEMOGLOBIN (HGB A1C) 5.5 % (4.8-5.6)
[2020-04-29 04:00] VITALS: BP 119/80
[2020-04-29 06:47] LABS: ABSOLUTE LYMPHOCYTES 0.6 thou/uL (0.8-5.3); ABSOLUTE MONOCYTES 0.2 thou/uL (0.0-1.2); ABSOLUTE NEUTROPHILS 7.9 thou/uL (1.6-8.1); BASOPHILS 0.5 %; EOSINOPHILS 0.1 %; HEMOGLOBIN 9.6 gm/dL (12.0-15.0); LYMPHOCYTES 7.1 %; MCH 28.9 pg (26.0-34.0); MCHC 34.1 g/dL (28.0-37.0); MCV 84.8 fL (80.0-100.0); MONOCYTES 2.4 %; NUCLEATED RBCS 0 /100WBC; PLATELET COUNT* 111 thou/uL (150-400); POLYS 89.9 %; RBC 3.31 mil/uL (4.20-5.00); RDW-CV 13.9 % (10.5-14.5); WBC 8.7 thou/uL (4.0-11.0)
[2020-04-29 06:59] LABS: CALCIUM 7.9 mg/dL (8.5-10.1); CREATININE 0.7 mg/dL (0.6-1.3); PHOSPHORUS* 1.4 mg/dL (2.5-4.9)
[2020-04-29 07:02] LABS: POTASSIUM 4.5 mmol/L (3.5-5.1)
[2020-04-29 08:29] LABS: BE -1.5 mmol/L (-2 to +3); PCO2 37.6 mmHg (35.0-45.0); PO2 79.2 mmHg (75.0-100.0); pH 7.403 (7.340-7.450)
[2020-04-29 08:30] VITALS: BP 112/80
[2020-04-29 20:20] VITALS: BP 116/81
[2020-04-30] VITALS: BP 144/62
[2020-04-30 04:00] VITALS: BP 135/82
[2020-04-30 06:55] LABS: ABSOLUTE BASOPHILS 0.1 thou/uL (0.0-0.2); ABSOLUTE LYMPHOCYTES 1.7 thou/uL (0.8-5.3); ABSOLUTE MONOCYTES 0.5 thou/uL (0.0-1.2); ABSOLUTE NEUTROPHILS 5.4 thou/uL (1.6-8.1); BASOPHILS 0.7 %; EOSINOPHILS 0.5 %; HEMOGLOBIN 9.1 gm/dL (12.0-15.0); LYMPHOCYTES 21.7 %; MCH 28.6 pg (26.0-34.0); MCHC 33.7 g/dL (28.0-37.0); MONOCYTES 5.9 %; MPV 9.7 fl. (7.2-11.1); NUCLEATED RBCS 0 /100WBC; PLATELET COUNT* 119 thou/uL (150-400); POLYS 71.2 %; RBC 3.18 mil/uL (4.20-5.00); RDW-CV 14.1 % (10.5-14.5); WBC 7.6 thou/uL (4.0-11.0)
[2020-04-30 07:09] LABS: CALCIUM 8.3 mg/dL (8.5-10.1); CREATININE 0.8 mg/dL (0.6-1.3); MAGNESIUM 1.7 mg/dL (1.8-2.4); POTASSIUM 3.7 mmol/L (3.5-5.1)
[2020-04-30 08:00] VITALS: BP 142/86
[2020-04-30] MEDS ORDERED: LEVAQUIN 750 M750 MG PO (12:14)
[2020-04-30 12:55] VITALS: BP 142/86
== END 2020-04-30 15:26 | disposition home or self-care (01) | DRG 871 ==
LOC: M.ERS 18:08 → M.2W 18:57 → M.TBA-ER 18:57 → M.2W 04-28 10:30
PROVIDERS: Emergency Medicine Emergency Medical Services; Internal Medicine Critical Care Medicine; Personal Emergency Response Attendant; ADMIT Internal Medicine; ATTEND Internal Medicine
PROC: 02HV33Z Insertion of Infusion Device into Superior Vena Cava, Percutaneous Approach (ICD-10-PCS; principal; 2020-04-28)
PROC: 5A09357 Assistance with Respiratory Ventilation, Less than 24 Consecutive Hours, Continuous Positive Airway Pressure (ICD-10-PCS; 2020-04-28)
DX: A41.9 Sepsis, unspecified organism (principal); J96.02 Acute respiratory failure with hypercapnia; I46.9 Cardiac arrest, cause unspecified; J69.0 Pneumonitis due to inhalation of food and vomit; R65.21 Severe sepsis with septic shock; J44.1 Chronic obstructive pulmonary disease with (acute) exacerbation; R04.2 Hemoptysis; T40.1X1A Poisoning by heroin, accidental (unintentional), initial encounter; F41.9 Anxiety disorder, unspecified; F31.9 Bipolar disorder, unspecified; M19.90 Unspecified osteoarthritis, unspecified site; I95.9 Hypotension, unspecified; R73.9 Hyperglycemia, unspecified; Y92.89 Other specified places as the place of occurrence of the external cause; G40.909 Epilepsy, unspecified, not intractable, without status epilepticus; Z86.14 Personal history of Methicillin resistant Staphylococcus aureus infection; Z88.6 Allergy status to analgesic agent; Z88.8 Allergy status to other drugs, medicaments and biological substances; Z82.49 Family history of ischemic heart disease and other diseases of the circulatory system; Z20.828 Contact with and (suspected) exposure to other viral communicable diseases